=== PATIENT | male | born 2000 | race African-American/Black ===

== ENCOUNTER 2023-06-15 13:51 | Emergency (ER) | payer OTHER ==
[~2023-06-15] VITALS: Ht 190.5 cm; Wt 90.9 kg
[2023-06-15 17:22] VITALS: BP 134/85; TEMP 98.2; O2SAT 98
== END 2023-06-15 17:35 | disposition home or self-care (01) ==
LOC: M ED 13:51
DX: U07.1 COVID-19 (principal)